=== PATIENT | female | born 1985 | race Caucasian/White ===

== ENCOUNTER 2016-07-06 21:04 | Emergency (ER) | payer OTHER ==
[2016-07-06] MEDS ORDERED: LIOTHYRONINE SO5 MC1 PO (21:14)
[2016-07-06] MEDS ORDERED: SYNTHROID PO (21:14)
[2016-07-06] MEDS ORDERED: LEXAPRO20 MG PO (21:15)
== END 2016-07-06 22:08 | disposition home or self-care (01) ==
LOC: SED 21:04
DX: M54.2 Cervicalgia (principal); M43.6 Torticollis; Z79.899 Other long term (current) drug therapy
CPT/HCPCS: 99282

== ENCOUNTER 2016-09-07 22:01 | Emergency (ER) | payer OTHER ==
[~2016-09-07] VITALS: Ht 162.6 cm; Wt 59.0 kg
[~2016-09-07 22:01] MED LIST: LEXAPRO20 MG PO; LIOTHYRONINE SO5 MC1 PO; SYNTHROID PO
== END 2016-09-07 23:46 | disposition home or self-care (01) ==
LOC: SED 22:01
DX: N72 Inflammatory disease of cervix uteri (principal)
CPT/HCPCS: 96372; 99283; J0696